=== PATIENT | female | born 2000 | race Caucasian/White ===

== ENCOUNTER 2018-04-05 03:17 | Emergency (ER) | payer MEDICAID ==
[~2018-04-05] VITALS: Ht 157.5 cm; Wt 46.7 kg
[~2018-04-05 03:17] MED LIST: ALBU8HFA PO; IBUP-1984 PO; ONDA4TAB59 PO
[2018-04-05] MEDS ORDERED: normal saline 1000ML IV soln IVB ONE (03:40)
[2018-04-05] MEDS ORDERED: morphine 4 MG/ML inj SYRINge IV PRN (03:40)
[2018-04-05] MEDS ORDERED: iohexol 300mg/ml 100ml inj. ONE (03:41)
[2018-04-05 04:04] LABS: BASOPHILS % (AUTO) 0.3 % (0-1); EOSINOPHILS # (AUTO) 0.2 X10'3 (0-0.9); EOSINOPHILS % (AUTO) 1.5 % (0-6); HEMATOCRIT 37.8 % (35.0-45.0); HEMOGLOBIN 13.1 g/dl (12.0-16.0); LYMPHOCYTES # (AUTO) 2.3 X10'3 (1.1-4.8); LYMPHOCYTES % (AUTO) 19.3 % (21-51); MEAN CORPUSCULAR HEMOGLOBIN 30.8 PG (27.0-31.0); MEAN CORPUSCULAR HGB CONC 34.6 % (33.0-36.5); MEAN CORPUSCULAR VOLUME 88.9 FL (78-98); MEAN PLATELET VOLUME 9.9 FL (7.4-10.4); MONOCYTES # (AUTO) 0.5 X10'3 (0-0.9); MONOCYTES % (AUTO) 3.9 % (2-12); NEUTROPHILS # (AUTO) 9.1 X10'3 (1.8-7.7); PLATELET COUNT 260 X10'3 (140-440); RED BLOOD COUNT 4.26 X10'6 (4.20-5.60); RED CELL DISTRIBUTION WIDTH 12.5 % (11.5-14.5); WHITE BLOOD COUNT 12.1 X10'3 (4.5-11.0)
[2018-04-05 04:45] LABS: HCG SERUM QL NEGATIVE
[2018-04-05 04:46] LABS: PARTIAL THROMBOPLASTIN TIME 27 SECONDS (22-32); PROTHROMBIN TIME 10.2 SECONDS (9.0-12.0)
[2018-04-05 04:54] LABS: ALANINE AMINOTRANSFERASE 18 U/L (12-78); ALBUMIN 3.1 G/DL (3.4-5.0); ALBUMIN/GLOBULIN RATIO 1.1 (1.1-1.5); ALKALINE PHOSPHATASE 58 IU/L (20-180); ANION GAP 6 (8-16); ASPARTATE AMINO TRANSFERASE 9 U/L (10-37); BILIRUBIN,TOTAL 0.4 MG/DL (0.1-1.0); BLOOD UREA NITROGEN 12 MG/DL (7-18); BUN/CREATININE RATIO 14.1 (6.6-38.0); CALCIUM 8.5 MG/DL (8.5-10.1); CHLORIDE 105 MMOL/L (99-107); CREATININE 0.85 MG/DL (0.40-0.90); ETHANOL < 0.010 GM/DL (0.0-0.010); GLUCOSE 104 MG/DL (70-104); LIPASE 103 U/L (73-393); POTASSIUM 3.7 MMOL/L (3.5-5.1); SODIUM 137 MMOL/L (135-145); TOTAL CARBON DIOXIDE 25.6 MMOL/L (24-32); TROPONIN I < 0.04 NG/ML (0.0-0.05); eGFR 86 ML/MIN
[2018-04-05 05:35] VITALS: BP 109/65
[2018-04-05 05:57] LABS: COLOR,URINE YELLOW (Yellow); GLUCOSE, URINE NEGATIVE (Neg); KETONES,URINE NEGATIVE (Neg); LEUKOCYTE ESTERASE ,URINE NEGATIVE (Neg); NITRITES, URINE NEGATIVE (Neg); OCCULT BLOOD,URINE LARGE (Neg); PH,URINE 6.5 (4.8-8.0); PROTEIN,URINE NEGATIVE (Neg); UROBILINOGEN,URINE 0.2 E.U/dL (0.2-1.0)
[2018-04-05 06:01] LABS: CLARITY,URINE SLIGHTLY CLOUDY (Clear); UA COLLECTION TYPE CLN CATCH MIDSTREAM
[2018-04-05 06:11] LABS: URINE AMPHETAMINE SCREEN NEGATIVE (Neg); URINE BARBITUATE SCREEN NEGATIVE (Neg); URINE BENZODIAZEPINES SCREEN NEGATIVE (Neg); URINE CANNABINOID SCREEN POSITIVE (Neg); URINE COCAINE SCREEN NEGATIVE (Neg); URINE METHADONE SCREEN NEGATIVE (Neg); URINE OPIATE SCREEN POSITIVE (Neg); URINE PHENCYCLIDINE SCREEN NEGATIVE (Neg)
[2018-04-05 06:14] LABS: BACTERIA,URINE 2+ /HPF (Neg); MUCUS STRANDS MODERATE /LPF (Neg); RBC,URINE 0-2 /HPF (0-2); SQUAMOUS EPITHELIAL CELL,UR MODERATE /LPF (FEW); WBC,URINE 0-4 /HPF (0-4)
== END 2018-04-05 05:37 | disposition home or self-care (01) ==
LOC: ER 03:17
DX: N83.202 Unspecified ovarian cyst, left side (principal); M25.512 Pain in left shoulder; M54.2 Cervicalgia; M25.552 Pain in left hip; R51 Headache; R10.84 Generalized abdominal pain; Z88.0 Allergy status to penicillin; Z79.899 Other long term (current) drug therapy; V48.5XXA Car driver injured in noncollision transport accident in traffic accident, initial encounter; Y93.89 Activity, other specified; Y92.410 Unspecified street and highway as the place of occurrence of the external cause; Y99.8 Other external cause status
CPT/HCPCS: 36415; 70450; 71260; 72125; 74177; 80053; 80305; 80320; 81001; 83690; 84484; 84703; 85025; 85610; 85730; 96374; 99285; J2270; J7030; Q9967

== ENCOUNTER 2019-09-15 18:57 | Emergency (ER) | payer MEDICAID ==
[~2019-09-15] VITALS: Ht 157.5 cm; Wt 47.7 kg
[2019-09-15] MEDS ORDERED: acetaminophen 325mg tablet PO ONE (19:05)
[2019-09-15] MEDS ORDERED: normal saline 1000ML IV soln IV ONE (19:35)
[2019-09-15 19:50] LABS: BASOPHILS % (AUTO) 0.2 % (0-1); EOSINOPHILS % (AUTO) 0.2 % (0-6); HEMATOCRIT 39.3 % (35.0-45.0); HEMOGLOBIN 13.5 g/dl (12.0-16.0); LYMPHOCYTES # (AUTO) 1.3 X10'3 (1.1-4.8); LYMPHOCYTES % (AUTO) 5.6 % (21-51); MEAN CORPUSCULAR HEMOGLOBIN 29.3 PG (27.0-31.0); MEAN CORPUSCULAR HGB CONC 34.3 g/dL (33.0-36.5); MEAN CORPUSCULAR VOLUME 85.6 FL (78-98); MEAN PLATELET VOLUME 8.8 FL (7.4-10.4); MONOCYTES # (AUTO) 0.7 X10'3 (0-0.9); NEUTROPHILS # (AUTO) 20.5 X10'3 (1.8-7.7); PLATELET COUNT 293 X10'3 (140-440); RED BLOOD COUNT 4.59 X10'6 (4.20-5.60); RED CELL DISTRIBUTION WIDTH 12.9 % (11.5-14.5); WHITE BLOOD COUNT 22.6 X10'3 (4.5-11.0)
[2019-09-15] MEDS ORDERED: oseltamivir phos 75mg capsule PO ONE (19:55)
[2019-09-15 20:15] LABS: ALANINE AMINOTRANSFERASE 22 U/L (12-78); ALBUMIN 4.4 G/DL (3.4-5.0); ALBUMIN/GLOBULIN RATIO 1.3 (1.1-1.5); ALKALINE PHOSPHATASE 100 IU/L (20-180); ANION GAP 12 (8-16); ASPARTATE AMINO TRANSFERASE 13 U/L (10-37); BLOOD UREA NITROGEN 12 MG/DL (7-18); BUN/CREATININE RATIO 16.2 (6.6-38.0); CALCIUM 9.5 MG/DL (8.5-10.1); CHLORIDE 102 MMOL/L (99-107); CREATININE 0.74 MG/DL (0.40-0.90); GLUCOSE 88 MG/DL (70-104); POTASSIUM 3.8 MMOL/L (3.5-5.1); SODIUM 135 MMOL/L (135-145); TOTAL CARBON DIOXIDE 21.2 MMOL/L (24-32); TOTAL PROTEIN 7.7 G/DL (6.4-8.2); eGFR > 90 ML/MIN
[2019-09-15 20:28] LABS: CLARITY,URINE CLEAR (Clear); COLOR,URINE YELLOW (Yellow); GLUCOSE, URINE NEGATIVE (Neg); KETONES,URINE 15 mg/dl (Neg); LEUKOCYTE ESTERASE ,URINE NEGATIVE (Neg); NITRITES, URINE NEGATIVE (Neg); OCCULT BLOOD,URINE NEGATIVE (Neg); PH,URINE 5.5 (4.8-8.0); PROTEIN,URINE NEGATIVE (Neg); UROBILINOGEN,URINE 0.2 E.U/dL (0.2-1.0)
[2019-09-15 20:32] LABS: UA COLLECTION TYPE CLN CATCH MIDSTREAM
[2019-09-15 20:45] VITALS: BP 101/46
--- NOTE | 2019-09-15 21:13 | NUR ---
pt moved from [facility] bed to er bed 8, report from junie morgan, care assumed
[2019-09-15] MEDS ORDERED: ALBU6.7H9 INH (21:15)
[2019-09-15] MEDS ORDERED: AZIT250T2 PO (21:15)
[2019-09-15] MEDS ORDERED: TAM75C PO (21:15)
[2019-09-15] MEDS ORDERED: ONDA4TAB6 PO (21:16)
[2019-09-15] MEDS ORDERED: ondansetron 4mg rapidly disintigrating tab PO ONE (21:20)
== END 2019-09-15 21:33 | disposition home or self-care (01) ==
LOC: ER 18:58
DX: B34.9 Viral infection, unspecified (principal); R05 Cough; Z88.0 Allergy status to penicillin; Z79.899 Other long term (current) drug therapy
CPT/HCPCS: 36415; 71045; 80053; 81003; 83605; 84145; 85025; 87040; 87502; 87503; 99284; J7030; J7040

== ENCOUNTER 2019-10-14 17:09 | Emergency (ER) | payer MEDICAID ==
[~2019-10-14] VITALS: Ht 157.5 cm; Wt 48.4 kg
[~2019-10-14 17:09] MED LIST changes: +ALBU6.7H9 INH; +ONDA4TAB6 PO
[2019-10-14 17:22] VITALS: BP 126/77
== END 2019-10-14 19:44 | disposition left against medical advice (07) ==
LOC: ER 17:10
DX: R51 Headache (principal); Z53.21 Procedure and treatment not carried out due to patient leaving prior to being seen by health care provider

== ENCOUNTER 2019-11-19 15:04 | Outpatient (CLI) | payer MEDICAID | END 2019-11-19 23:59 | disposition home or self-care (01) | LOC: RAD 15:04 | PROVIDERS: ATTEND Physician Assistant Medical | DX: R56.9 Unspecified convulsions (principal) | CPT/HCPCS: 95816 ==

== ENCOUNTER 2020-07-14 11:04 | Day surgery (SDC) | payer MEDICAID ==
[2020-07-07 12:28] LABS: CLARITY,URINE SLIGHTLY CLOUDY (Clear); COLOR,URINE YELLOW (Yellow); GLUCOSE, URINE NEGATIVE (Neg); KETONES,URINE NEGATIVE (Neg); LEUKOCYTE ESTERASE ,URINE NEGATIVE (Neg); NITRITES, URINE NEGATIVE (Neg); OCCULT BLOOD,URINE NEGATIVE (Neg); PROTEIN,URINE NEGATIVE (Neg); UROBILINOGEN,URINE 0.2 E.U/dL (0.2-1.0)
[2020-07-07 12:28] LABS: BASOPHILS % (AUTO) 0.5 % (0-1); EOSINOPHILS # (AUTO) 0.2 X10'3 (0-0.9); EOSINOPHILS % (AUTO) 2.2 % (0-6); LYMPHOCYTES # (AUTO) 2.8 X10'3 (1.1-4.8); LYMPHOCYTES % (AUTO) 29.3 % (21-51); MEAN CORPUSCULAR HEMOGLOBIN 30.6 PG (27.0-31.0); MEAN CORPUSCULAR HGB CONC 33.7 g/dL (33.0-36.5); MEAN CORPUSCULAR VOLUME 90.6 FL (78-98); MEAN PLATELET VOLUME 8.8 FL (7.4-10.4); MONOCYTES # (AUTO) 0.5 X10'3 (0-0.9); MONOCYTES % (AUTO) 5.4 % (2-12); NEUTROPHILS % (AUTO) 62.6 % (42-75); PRE OP HEMATOCRIT 37.6 % (35.0-45.0); PRE OP HEMOGLOBIN 12.7 g/dL (12.0-16.0); PRE OP PLATELET COUNT 313 X10'3 (140-440); RED BLOOD COUNT 4.15 X10'6 (4.20-5.60); RED CELL DISTRIBUTION WIDTH 13.3 % (11.5-14.5)
[2020-07-07 12:37] LABS: UA COLLECTION TYPE CLN CATCH MIDSTREAM
[2020-07-07 12:38] LABS: BACTERIA,URINE 1+ /HPF (Neg); MUCUS STRANDS MODERATE /LPF (Neg); SQUAMOUS EPITHELIAL CELL,UR MODERATE /LPF (FEW)
[2020-07-07 12:38] LABS: ALBUMIN 3.9 G/DL (3.4-5.0); ALBUMIN/GLOBULIN RATIO 1.3 (1.1-1.5); ALKALINE PHOSPHATASE 69 IU/L (46-116); BLOOD UREA NITROGEN 19 MG/DL (7-18); BUN/CREATININE RATIO 24.4 (6.6-38.0); CALCIUM 8.6 MG/DL (8.5-10.1); CHLORIDE 109 MMOL/L (99-107); CREATININE 0.78 MG/DL (0.40-0.90); PRE OP ALT 24 U/L (30-65); PRE OP ANION GAP 3 (8-16); PRE OP AST 9 U/L (10-37); PRE OP BILIRUB, TOTAL 0.4 MG/DL (0.0-1.0); PRE OP GLUCOSE 64 MG/DL (70-104); PRE OP POTASSIUM 3.6 MMOL/L (3.4-5.1); PRE OP SODIUM 141 MMOL/L (135-145); TOTAL CARBON DIOXIDE 29.5 MMOL/L (24-32); TOTAL PROTEIN 6.8 G/DL (6.4-8.2); eGFR > 90 ML/MIN
[2020-07-07 12:39] LABS: RBC,URINE 0-2 /HPF (0-2); WBC,URINE 0-4 /HPF (0-4)
[2020-07-07 12:51] LABS: HCG SERUM QL POSITIVE
[~2020-07-14] VITALS: Ht 157.5 cm; Wt 44.9 kg
[2020-07-14] VITALS (12 sets, daily range): BP systolic 93–106; BP diastolic 44–66
[~2020-07-14 11:04] MED LIST changes: -ALBU6.7H9 INH; -ALBU8HFA PO; +GENTAMICIN IV ONE; +NORMAL SALINE IV ONE; -ONDA4TAB59 PO; -ONDA4TAB6 PO; +clindamycin-Cleocin 900mg/D5W 50 ML IV ONE; +famotidine 10mg tablet PO ONE; +ringers solution, lacted 1,000 ML IV SCH
[2020-07-14] MEDS ORDERED: labetalol 20mg/4ml (5mg/ml) syringe IV PRN (12:40)
[2020-07-14] MEDS ORDERED: ringers solution, lacted 1,000 ML IV SCH ×2 (12:40→15:10)
[2020-07-14] MEDS ORDERED: fentaNYL/PF 50MCG/1 ML 2ML syringe IV PRN ×2 (12:40)
[2020-07-14] MEDS ORDERED: morphine 2 MG/ML inj. syringe IV PRN ×2 (12:40→15:10)
[2020-07-14] MEDS ORDERED: morphine 4 MG/ML inj SYRINge IV PRN ×2 (12:40→15:10)
[2020-07-14] MEDS ORDERED: hydrALAZINE 20mg/ml inj. IV PRN (12:40)
[2020-07-14] MEDS ORDERED: ondansetron/PF 4mg/2ml inj IV PRN ×2 (12:40→15:10)
[2020-07-14] MEDS ORDERED: BUPIVAcaine 0.25% w/Epi /PF 30ml vial ONE (14:04)
[2020-07-14] MEDS ORDERED: BUPIVAcaine/PF 2.5 mg/ml (0.25%) 30ml vial ONE (14:05)
[2020-07-14] MEDS ORDERED: MIDAZolam 5mg/ml 2ml vial IV ONE (15:00)
[2020-07-14] MEDS ORDERED: meperidine/PF 25mg/ml syringe IV PRN ×2 (15:10)
[2020-07-14] MEDS ORDERED: proCHLORperazine 10 MG/2 ml inj IV PRN (15:10)
[2020-07-14] MEDS ORDERED: sevoflurane 250ml liquid IH ONE (16:01)
[2020-07-14] MEDS ORDERED: rocuronium 10mg/ml inj IV ONE (16:01)
[2020-07-14] MEDS ORDERED: atropine 0.4 mg/ml 20ml vial ONE (16:01)
[2020-07-14] MEDS ORDERED: fentaNYL/PF 50MCG/1 ML 2ML syringe ONE (16:03)
[2020-07-14] MEDS ORDERED: midazolam 2 mg/2 ml injection ONE (16:03)
[2020-07-14] MEDS ORDERED: dexamethasone sod phosphate 4mg/ml inj. ONE (16:22)
[2020-07-14] MEDS ORDERED: LIDOcaine 2% (20mg/ml) 5ml vial ONE (16:22)
[2020-07-14] MEDS ORDERED: propofol inj 20 ML IV ONE (16:22)
[2020-07-14] MEDS ORDERED: ketorolac trometh. 30mg/ml inj. ONE (16:28)
--- NOTE | 2020-07-14 16:52 | NUR ---
Received from OR via , accompanied by Anesthesiologist DR CLEMENTE and report given by Anesthesiolgist. NOT RESPONSIVE. ORAL AIRWAY IN PLACE. BREATHING WITHOUR ASSISTANCE. VITALS STABLE. DRESSINGS DI. ABD SOFT.
--- NOTE | 2020-07-14 17:00 | NUR ---
PT IS NOW RESPONDING AIRWAY REMOVED.
[2020-07-14] MEDS: meperidine/PF 25mg/ml syringe IV PRN ×3 (17:14→18:01)
[2020-07-14] MEDS ORDERED: acetaminophen 1,000mg/100ml IV 100 ML IV ONE (17:50)
[2020-07-14] MEDS ORDERED: HYDROcodone/acetaminophen 10/325mg tab PO ONE (17:50)
--- NOTE | 2020-07-14 18:52 | NUR ---
AWAKE AND ORIENTED. VITALS STABLE. DRESSING DI. STATES PAIN IMPROVING. HOME WITH HER SPOUSE AT THIS TIME.
== END 2020-07-14 18:52 | disposition home or self-care (01) ==
LOC: PAS 11:04
PROVIDERS: ATTEND Obstetrics & Gynecology Obstetrics
DX: Z30.2 Encounter for sterilization (principal); Z20.828 Contact with and (suspected) exposure to other viral communicable diseases; F17.210 Nicotine dependence, cigarettes, uncomplicated; G43.909 Migraine, unspecified, not intractable, without status migrainosus; F32.9 Major depressive disorder, single episode, unspecified; D64.9 Anemia, unspecified; F41.9 Anxiety disorder, unspecified; Z86.14 Personal history of Methicillin resistant Staphylococcus aureus infection; Z88.0 Allergy status to penicillin; Z79.899 Other long term (current) drug therapy; Z98.890 Other specified postprocedural states; R10.2 Pelvic and perineal pain
CPT/HCPCS: 36415; 58671; 80053; 81001; 82948; 84702; 84703; 85025; 86885; 86900; 86901; 87635; A4264; J0131; J0461; J1100; J1580; J1885; J2001; J2175; J2250; J2405; J2704; J3010; J3490; A4618; A7000; J7120

== ENCOUNTER 2021-02-17 19:39 | Emergency (ER) | payer MEDICAID ==
[~2021-02-17] VITALS: Ht 157.5 cm; Wt 47.5 kg
[~2021-02-17 19:39] MED LIST changes: -GENTAMICIN IV ONE; -NORMAL SALINE IV ONE; -clindamycin-Cleocin 900mg/D5W 50 ML IV ONE; -famotidine 10mg tablet PO ONE; -ringers solution, lacted 1,000 ML IV SCH
[2021-02-17 20:40] LABS: URINE HCG NEGATIVE (NEG)
[2021-02-17 20:42] LABS: CLARITY,URINE CLEAR (Clear); COLOR,URINE YELLOW (Yellow); GLUCOSE, URINE NEGATIVE (Neg); KETONES,URINE NEGATIVE (Neg); LEUKOCYTE ESTERASE ,URINE TRACE (Neg); NITRITES, URINE NEGATIVE (Neg); OCCULT BLOOD,URINE NEGATIVE (Neg); PROTEIN,URINE NEGATIVE (Neg); UROBILINOGEN,URINE 0.2 E.U/dL (0.2-1.0)
[2021-02-17 20:51] LABS: UA COLLECTION TYPE CLN CATCH MIDSTREAM
[2021-02-17 20:52] LABS: BACTERIA,URINE FEW /HPF (Neg); RBC,URINE NONE SEEN /HPF (0-2); SQUAMOUS EPITHELIAL CELL,UR FEW /LPF (FEW); WBC,URINE 0-4 /HPF (0-4)
[2021-02-17] MEDS ORDERED: CIPR-202 PO (22:41)
[2021-02-17 22:50] VITALS: BP 110/62
== END 2021-02-17 22:52 | disposition home or self-care (01) ==
LOC: ER 19:40
DX: N39.0 Urinary tract infection, site not specified (principal); R30.0 Dysuria; R10.84 Generalized abdominal pain; Z88.0 Allergy status to penicillin; Z79.2 Long term (current) use of antibiotics; Z79.899 Other long term (current) drug therapy
CPT/HCPCS: 81001; 81025; 87077; 87088; 87186; 99283

== ENCOUNTER 2021-03-08 18:58 | Emergency (ER) | payer MEDICAID ==
[~2021-03-08] VITALS: Ht 157.5 cm; Wt 47.5 kg
[2021-03-08 19:42] LABS: URINE HCG NEGATIVE (NEG)
[2021-03-08 19:46] LABS: COLOR,URINE YELLOW (Yellow); GLUCOSE, URINE NEGATIVE (Neg); KETONES,URINE NEGATIVE (Neg); LEUKOCYTE ESTERASE ,URINE NEGATIVE (Neg); NITRITES, URINE NEGATIVE (Neg); OCCULT BLOOD,URINE NEGATIVE (Neg); PROTEIN,URINE NEGATIVE (Neg); UROBILINOGEN,URINE 0.2 E.U/dL (0.2-1.0)
[2021-03-08 19:53] LABS: CLARITY,URINE SLIGHTLY CLOUDY (Clear); UA COLLECTION TYPE NON-SPECIFIED
[2021-03-08 19:54] LABS: WBC,URINE 0-4 /HPF (0-4)
[2021-03-08 19:55] LABS: BACTERIA,URINE NONE SEEN /HPF (Neg); MUCUS STRANDS MODERATE /LPF (Neg); RBC,URINE NONE SEEN /HPF (0-2); SQUAMOUS EPITHELIAL CELL,UR MODERATE /LPF (FEW)
[2021-03-08 20:19] VITALS: BP 116/69
== END 2021-03-08 20:20 | disposition home or self-care (01) ==
LOC: ER 19:00
DX: R30.0 Dysuria (principal); R10.2 Pelvic and perineal pain; M54.5 Low back pain; G43.909 Migraine, unspecified, not intractable, without status migrainosus; F12.90 Cannabis use, unspecified, uncomplicated; Z98.51 Tubal ligation status; Z56.0 Unemployment, unspecified; Z88.0 Allergy status to penicillin; Z79.899 Other long term (current) drug therapy
CPT/HCPCS: 81001; 81025; 99283

== ENCOUNTER 2021-06-15 06:57 | Emergency (ER) | payer MEDICAID ==
[~2021-06-15] VITALS: Ht 157.5 cm; Wt 45.5 kg
[2021-06-15 07:51] LABS: URINE HCG NEGATIVE (NEG)
[2021-06-15] MEDS ORDERED: HYDROcodone/acetaminophen 5mg/325mg tablet PO ONE (07:55)
[2021-06-15 07:56] LABS: CLARITY,URINE CLOUDY (Clear); COLOR,URINE YELLOW (Yellow); UA COLLECTION TYPE CLN CATCH MIDSTREAM
[2021-06-15 07:57] LABS: GLUCOSE, URINE NEGATIVE (Neg); KETONES,URINE NEGATIVE (Neg); NITRITES, URINE POSITIVE (Neg); OCCULT BLOOD,URINE NEGATIVE (Neg); PROTEIN,URINE TRACE mg/dl (Neg)
[2021-06-15 07:58] LABS: LEUKOCYTE ESTERASE ,URINE TRACE (Neg)
[2021-06-15 08:09] VITALS: BP 101/60
[2021-06-15 08:10] LABS: MUCUS STRANDS MODERATE /LPF (Neg)
[2021-06-15] MEDS ORDERED: ciprofloxacin 250mg tablet PO ONE (08:10)
[2021-06-15 08:11] LABS: BACTERIA,URINE TNTC /HPF (Neg)
[2021-06-15 08:12] LABS: RBC,URINE NONE SEEN /HPF (0-2); WBC,URINE 0-4 /HPF (0-4)
[2021-06-15 08:14] LABS: SQUAMOUS EPITHELIAL CELL,UR MODERATE /LPF (FEW)
[2021-06-15] MEDS ORDERED: HYDR-3965 PO (08:18)
[2021-06-15] MEDS ORDERED: CIPR-202 PO (08:18)
[2021-06-15] MEDS ORDERED: ONDA4TAB6 PO (16:57)
== END 2021-06-15 08:53 | disposition home or self-care (01) ==
LOC: ER 06:57
DX: N39.0 Urinary tract infection, site not specified (principal); G43.909 Migraine, unspecified, not intractable, without status migrainosus; Z88.0 Allergy status to penicillin; Z56.0 Unemployment, unspecified; Z79.899 Other long term (current) drug therapy
CPT/HCPCS: 71045; 81001; 81025; 99284

== ENCOUNTER 2021-06-15 16:26 | Emergency (ER) | payer MEDICAID ==
[~2021-06-15] VITALS: Ht 157.5 cm; Wt 45.5 kg
[~2021-06-15 16:26] MED LIST changes: +CIPR-202 PO; +HYDR-3965 PO
[2021-06-15] MEDS ORDERED: ondansetron/PF 4mg/2ml inj IV ONE (16:45)
[2021-06-15] MEDS ORDERED: normal saline 1000ML IV soln IVB ONE (16:45)
[2021-06-15] MEDS ORDERED: ketorolac trometh. 30mg/ml inj. IV ONE (16:45)
[2021-06-15] MEDS ORDERED: ONDA4TAB6 PO (16:57)
[2021-06-15 19:07] VITALS: BP 120/58
== END 2021-06-15 19:10 | disposition home or self-care (01) ==
LOC: ER 16:27
DX: U07.1 COVID-19 (principal); E86.0 Dehydration; N39.0 Urinary tract infection, site not specified; G43.909 Migraine, unspecified, not intractable, without status migrainosus; F12.10 Cannabis abuse, uncomplicated; Z56.0 Unemployment, unspecified; Z88.0 Allergy status to penicillin; Z79.899 Other long term (current) drug therapy
CPT/HCPCS: 93005; 96361; 96374; 96375; 99284; J1885; J2405; J7030

== ENCOUNTER 2021-06-26 10:41 | Emergency (ER) | payer MEDICAID ==
[~2021-06-26] VITALS: Ht 157.5 cm; Wt 45.5 kg
[~2021-06-26 10:41] MED LIST changes: +ONDA4TAB6 PO
[2021-06-26 11:37] LABS: BASOPHILS # (AUTO) 0.1 X10'3 (0-0.2); BASOPHILS % (AUTO) 0.4 % (0-1); EOSINOPHILS # (AUTO) 0.1 X10'3 (0-0.9); EOSINOPHILS % (AUTO) 0.7 % (0-6); HEMATOCRIT 35.7 % (35.0-45.0); HEMOGLOBIN 12.2 g/dl (12.0-16.0); LYMPHOCYTES # (AUTO) 2.8 X10'3 (1.1-4.8); LYMPHOCYTES % (AUTO) 14.8 % (21-51); MEAN CORPUSCULAR HEMOGLOBIN 30.1 PG (27.0-31.0); MEAN CORPUSCULAR HGB CONC 34.2 g/dL (33.0-36.5); MEAN PLATELET VOLUME 8.2 FL (7.4-10.4); MONOCYTES # (AUTO) 1.4 X10'3 (0-0.9); MONOCYTES % (AUTO) 7.1 % (2-12); NEUTROPHILS # (AUTO) 14.6 X10'3 (1.8-7.7); PLATELET COUNT 507 X10'3 (140-440); RED BLOOD COUNT 4.06 X10'6 (4.20-5.60); RED CELL DISTRIBUTION WIDTH 12.8 % (11.5-14.5)
[2021-06-26 11:53] LABS: ALANINE AMINOTRANSFERASE 23 U/L (12-78); ALBUMIN 4.1 G/DL (3.4-5.0); ALKALINE PHOSPHATASE 101 IU/L (46-116); ANION GAP 7 (8-16); ASPARTATE AMINO TRANSFERASE 13 U/L (10-37); BILIRUBIN,TOTAL 0.8 MG/DL (0.1-1.0); BLOOD UREA NITROGEN 19 MG/DL (7-18); BUN/CREATININE RATIO 25.7 (6.6-38.0); CALCIUM 9.4 MG/DL (8.5-10.1); CHLORIDE 103 MMOL/L (99-107); CREATININE 0.74 MG/DL (0.40-0.90); GLUCOSE 90 MG/DL (70-104); POTASSIUM 3.2 MMOL/L (3.5-5.1); SODIUM 139 MMOL/L (135-145); TOTAL CARBON DIOXIDE 29.1 MMOL/L (24-32); TOTAL PROTEIN 8.4 G/DL (6.4-8.2); eGFR > 90 ML/MIN
[2021-06-26 13:01] LABS: URINE HCG NEGATIVE (NEG)
[2021-06-26 13:22] LABS: UA COLLECTION TYPE CLN CATCH MIDSTREAM
[2021-06-26 13:23] LABS: CLARITY,URINE SLIGHTLY CLOUDY (Clear); GLUCOSE, URINE NEGATIVE (Neg); KETONES,URINE NEGATIVE (Neg); LEUKOCYTE ESTERASE ,URINE NEGATIVE (Neg); NITRITES, URINE NEGATIVE (Neg); OCCULT BLOOD,URINE NEGATIVE (Neg); PROTEIN,URINE NEGATIVE (Neg); UROBILINOGEN,URINE 0.2 E.U/dL (0.2-1.0)
[2021-06-26 13:24] LABS: COLOR,URINE YELLOW (Yellow)
[2021-06-26 13:30] LABS: MUCUS STRANDS MANY /LPF (Neg); SQUAMOUS EPITHELIAL CELL,UR MANY /LPF (FEW); TRANSITIONAL EPI CELLS,URINE FEW /HPF
[2021-06-26 13:31] LABS: BACTERIA,URINE FEW /HPF (Neg); RBC,URINE 0-2 /HPF (0-2); WBC,URINE 0-4 /HPF (0-4)
[2021-06-26] MEDS ORDERED: ondansetron 4mg rapidly disintigrating tab PO ONE (13:40)
[2021-06-26] MEDS ORDERED: CYCL-1 PO (15:20)
[2021-06-26] MEDS ORDERED: potassium Cl 20 mEq SR tablet PO ONE (15:20)
[2021-06-26] MEDS ORDERED: ketorolac tromethamine 15mg/ml inj. IM ONE (15:20)
[2021-06-26] MEDS ORDERED: IBUP-1984 PO (15:20)
[2021-06-26 16:05] VITALS: BP 97/56
== END 2021-06-26 16:00 | disposition home or self-care (01) ==
LOC: ER 10:42
DX: S39.011A Strain of muscle, fascia and tendon of abdomen, initial encounter (principal); R10.84 Generalized abdominal pain; G43.909 Migraine, unspecified, not intractable, without status migrainosus; F12.90 Cannabis use, unspecified, uncomplicated; Z56.0 Unemployment, unspecified; Z98.51 Tubal ligation status; Z88.0 Allergy status to penicillin; Z79.2 Long term (current) use of antibiotics; Z79.899 Other long term (current) drug therapy; X58.XXXA Exposure to other specified factors, initial encounter; Y93.89 Activity, other specified; Y92.89 Other specified places as the place of occurrence of the external cause; Y99.8 Other external cause status
CPT/HCPCS: 36415; 71045; 74176; 80053; 81001; 81025; 83605; 83690; 84145; 85025; 96372; 99285; J1885

== ENCOUNTER 2022-01-30 20:54 | Emergency (ER) | payer MEDICAID ==
[~2022-01-30] VITALS: Ht 157.5 cm; Wt 52.3 kg
[~2022-01-30 20:54] MED LIST changes: -CIPR-202 PO; +CYCL-1 PO; -HYDR-3965 PO
[2022-01-30 21:51] LABS: URINE HCG NEGATIVE (NEG)
[2022-01-30 21:54] LABS: BASOPHILS # (AUTO) 0.1 X10'3 (0-0.2); BASOPHILS % (AUTO) 1.1 % (0-1); EOSINOPHILS # (AUTO) 0.2 X10'3 (0-0.9); EOSINOPHILS % (AUTO) 2.1 % (0-6); HEMATOCRIT 35.9 % (35.0-45.0); LYMPHOCYTES # (AUTO) 2.2 X10'3 (1.1-4.8); LYMPHOCYTES % (AUTO) 23.5 % (21-51); MEAN CORPUSCULAR HEMOGLOBIN 29.8 PG (27.0-31.0); MEAN CORPUSCULAR HGB CONC 33.4 g/dL (33.0-36.5); MEAN CORPUSCULAR VOLUME 89.2 FL (78-98); MONOCYTES # (AUTO) 0.8 X10'3 (0-0.9); MONOCYTES % (AUTO) 8.5 % (2-12); NEUTROPHILS # (AUTO) 6.1 X10'3 (1.8-7.7); NEUTROPHILS % (AUTO) 64.8 % (42-75); PLATELET COUNT 251 X10'3 (140-440); RED BLOOD COUNT 4.02 X10'6 (4.20-5.60); WHITE BLOOD COUNT 9.4 X10'3 (4.5-11.0)
[2022-01-30 21:56] LABS: CLARITY,URINE CLEAR (Clear); COLOR,URINE YELLOW (Yellow); GLUCOSE, URINE NEGATIVE (Neg); KETONES,URINE NEGATIVE (Neg); LEUKOCYTE ESTERASE ,URINE NEGATIVE (Neg); NITRITES, URINE NEGATIVE (Neg); OCCULT BLOOD,URINE NEGATIVE (Neg); PROTEIN,URINE NEGATIVE (Neg); UROBILINOGEN,URINE 0.2 E.U/dL (0.2-1.0)
[2022-01-30 21:58] LABS: UA COLLECTION TYPE CLN CATCH MIDSTREAM
[2022-01-30 22:07] LABS: ALANINE AMINOTRANSFERASE 20 U/L (12-78); ALBUMIN 3.6 G/DL (3.4-5.0); ALBUMIN/GLOBULIN RATIO 1.2 (1.1-1.5); ALKALINE PHOSPHATASE 53 IU/L (46-116); ANION GAP 9 (8-16); ASPARTATE AMINO TRANSFERASE 15 U/L (10-37); BILIRUBIN,TOTAL 0.3 MG/DL (0.1-1.0); BLOOD UREA NITROGEN 21 MG/DL (7-18); CHLORIDE 105 MMOL/L (99-107); CREATININE 0.75 MG/DL (0.40-0.90); GLUCOSE 98 MG/DL (70-104); LIPASE 86 U/L (73-393); POTASSIUM 4.1 MMOL/L (3.5-5.1); SODIUM 139 MMOL/L (135-145); TOTAL CARBON DIOXIDE 24.7 MMOL/L (24-32); TOTAL PROTEIN 6.5 G/DL (6.4-8.2); eGFR > 90 ML/MIN
[2022-01-30] MEDS ORDERED: HYDROcodone/acetaminophen 5mg/325mg tablet PO ONE (23:10)
[2022-01-30] MEDS ORDERED: normal saline 1000ml 1,000 ML IV ONE (23:10)
[2022-01-30] MEDS ORDERED: ondansetron/PF 4mg/2ml inj IV ONE (23:10)
[2022-01-30] MEDS ORDERED: dicyclomine 10 MG capsule PO ONE (23:10)
[2022-01-30] MEDS ORDERED: ketorolac trometh. 30mg/ml inj. IV ONE (23:10)
[2022-01-30] MEDS ORDERED: acetaminophen 325mg tablet PO ONE (23:10)
[2022-01-31] MEDS ORDERED: DOCU-171 PO (00:02)
[2022-01-31 00:12] VITALS: BP 102/61
== END 2022-01-31 00:14 | disposition home or self-care (01) ==
LOC: ER 20:54
DX: R10.31 Right lower quadrant pain (principal); R10.32 Left lower quadrant pain; G43.909 Migraine, unspecified, not intractable, without status migrainosus; F12.90 Cannabis use, unspecified, uncomplicated; Z98.51 Tubal ligation status; Z56.0 Unemployment, unspecified; Z88.0 Allergy status to penicillin; Z79.899 Other long term (current) drug therapy
CPT/HCPCS: 36415; 74176; 80053; 81003; 81025; 83690; 85025; 96361; 96374; 96375; 99284; J1885; J2405; J7030

== ENCOUNTER 2023-02-17 11:46 | Emergency (ER) | payer MEDICAID ==
[~2023-02-17] VITALS: Ht 157.5 cm; Wt 59.1 kg
[~2023-02-17 11:46] MED LIST changes: +DOCU-171 PO
[2023-02-17 12:10] VITALS: BP 118/73
[2023-02-17] MEDS ORDERED: ketorolac trometh inj. 60 MG/2 ML VIAL IM ONE (12:55)
[2023-02-17] MEDS ORDERED: clindamycin 150mg capsule PO ONE (12:55)
[2023-02-17] MEDS ORDERED: IBUP-1986 PO (12:56)
[2023-02-17] MEDS ORDERED: CLIN-142 PO (12:56)
== END 2023-02-17 13:49 | disposition home or self-care (01) ==
LOC: ER 11:46
DX: K08.89 Other specified disorders of teeth and supporting structures (principal); G43.909 Migraine, unspecified, not intractable, without status migrainosus; F12.90 Cannabis use, unspecified, uncomplicated; Z88.0 Allergy status to penicillin; Z98.51 Tubal ligation status; Z56.0 Unemployment, unspecified
CPT/HCPCS: 96372; 99283; J1885

== ENCOUNTER 2023-07-02 08:17 | Emergency (ER) | payer MEDICAID ==
[~2023-07-02] VITALS: Ht 157.5 cm; Wt 56.0 kg
[~2023-07-02 08:17] MED LIST changes: +IBUP-1986 PO
[2023-07-02 08:24] VITALS: TEMP 97.9
[2023-07-02] MEDS ORDERED: ondansetron/PF 4mg/2ml inj IV ONE (10:05)
[2023-07-02] MEDS ORDERED: normal saline 1000ml 1,000 ML IV ONE (10:05)
[2023-07-02 10:07] LABS: BASOPHILS # (AUTO) 0.1 X10'3 (0-0.2); BASOPHILS % (AUTO) 0.6 % (0-1); EOSINOPHILS % (AUTO) 0.2 % (0-6); HEMATOCRIT 41.7 % (35.0-45.0); HEMOGLOBIN 13.8 g/dl (12.0-16.0); LYMPHOCYTES # (AUTO) 1.5 X10'3 (1.1-4.8); MEAN CORPUSCULAR HEMOGLOBIN 30.3 PG (27.0-31.0); MEAN CORPUSCULAR HGB CONC 33.2 g/dL (33.0-36.5); MEAN CORPUSCULAR VOLUME 91.3 FL (78-98); MEAN PLATELET VOLUME 8.9 FL (7.4-10.4); MONOCYTES # (AUTO) 0.4 X10'3 (0-0.9); MONOCYTES % (AUTO) 3.7 % (2-12); NEUTROPHILS # (AUTO) 9.7 X10'3 (1.8-7.7); NEUTROPHILS % (AUTO) 82.5 % (42-75); PLATELET COUNT 353 X10'3 (140-440); RED BLOOD COUNT 4.57 X10'6 (4.20-5.60); RED CELL DISTRIBUTION WIDTH 12.9 % (11.5-14.5); WHITE BLOOD COUNT 11.7 X10'3 (4.5-11.0)
[2023-07-02 10:36] LABS: ALANINE AMINOTRANSFERASE 22 U/L (12-78); ALBUMIN 4.4 G/DL (3.4-5.0); ALBUMIN/GLOBULIN RATIO 1.3 (1.1-1.5); ALKALINE PHOSPHATASE 71 IU/L (46-116); ANION GAP 6 (8-16); ASPARTATE AMINO TRANSFERASE 16 U/L (10-37); BILIRUBIN,TOTAL 0.9 MG/DL (0.1-1.0); BLOOD UREA NITROGEN 14 MG/DL (7-18); BUN/CREATININE RATIO 20.6 (10.0-20.0); CALCIUM 9.6 MG/DL (8.5-10.1); CHLORIDE 105 MMOL/L (99-107); CREATININE 0.68 MG/DL (0.40-0.90); ETHANOL < 10 MG/DL (<10); GLUCOSE 132 MG/DL (70-104); POTASSIUM 3.6 MMOL/L (3.5-5.1); SODIUM 139 MMOL/L (135-145); TOTAL CARBON DIOXIDE 28.3 MMOL/L (24-32); TOTAL PROTEIN 7.8 G/DL (6.4-8.2); eCRCL 101 ML/MIN; eGFR > 90 ML/MIN
[2023-07-02 10:41] LABS: HCG SERUM QL NEGATIVE
[2023-07-02 10:50] VITALS: O2SAT 97
[2023-07-02 12:37] VITALS: BP 102/65; PULSE 76; RESP 18
== END 2023-07-02 12:48 | disposition home or self-care (01) ==
LOC: ER 08:18
DX: F10.129 Alcohol abuse with intoxication, unspecified (principal); R11.2 Nausea with vomiting, unspecified; R10.9 Unspecified abdominal pain; G43.909 Migraine, unspecified, not intractable, without status migrainosus; Z56.0 Unemployment, unspecified; Z98.51 Tubal ligation status; Z79.899 Other long term (current) drug therapy; Z88.0 Allergy status to penicillin; Y90.0 Blood alcohol level of less than 20 mg/100 ml
CPT/HCPCS: 36415; 80053; 80320; 83690; 84703; 85025; 96361; 96374; 99283; J2405; J7030

== ENCOUNTER 2023-07-29 13:29 | Emergency (ER) | payer MEDICAID ==
[~2023-07-29] VITALS: Ht 157.5 cm; Wt 56.7 kg
[2023-07-29 14:06] VITALS: BP 130/74; PULSE 98; TEMP 97.7; O2SAT 98
[2023-07-29 14:26] VITALS: RESP 16
[2023-07-29 15:28] LABS: BASOPHILS # (AUTO) 0.1 X10'3 (0-0.2); BASOPHILS % (AUTO) 0.7 % (0-1); EOSINOPHILS # (AUTO) 0.2 X10'3 (0-0.9); EOSINOPHILS % (AUTO) 1.7 % (0-6); HEMATOCRIT 40.4 % (35.0-45.0); HEMOGLOBIN 13.6 g/dl (12.0-16.0); LYMPHOCYTES % (AUTO) 28.7 % (21-51); MEAN CORPUSCULAR HEMOGLOBIN 30.7 PG (27.0-31.0); MEAN CORPUSCULAR HGB CONC 33.7 g/dL (33.0-36.5); MEAN PLATELET VOLUME 8.9 FL (7.4-10.4); MONOCYTES # (AUTO) 0.7 X10'3 (0-0.9); MONOCYTES % (AUTO) 6.3 % (2-12); NEUTROPHILS # (AUTO) 6.5 X10'3 (1.8-7.7); NEUTROPHILS % (AUTO) 62.6 % (42-75); PLATELET COUNT 319 X10'3 (140-440); RED BLOOD COUNT 4.43 X10'6 (4.20-5.60); RED CELL DISTRIBUTION WIDTH 12.7 % (11.5-14.5); WHITE BLOOD COUNT 10.4 X10'3 (4.5-11.0)
[2023-07-29 15:49] LABS: ALANINE AMINOTRANSFERASE 26 U/L (12-78); ALBUMIN 4.1 G/DL (3.4-5.0); ALBUMIN/GLOBULIN RATIO 1.2 (1.1-1.5); ALKALINE PHOSPHATASE 72 IU/L (46-116); ANION GAP 6 (8-16); ASPARTATE AMINO TRANSFERASE 17 U/L (10-37); BILIRUBIN,TOTAL 0.8 MG/DL (0.1-1.0); BLOOD UREA NITROGEN 8 MG/DL (7-18); BUN/CREATININE RATIO 12.1 (10.0-20.0); CALCIUM 9.4 MG/DL (8.5-10.1); CHLORIDE 103 MMOL/L (99-107); CREATININE 0.66 MG/DL (0.40-0.90); GLUCOSE 80 MG/DL (70-104); POTASSIUM 3.8 MMOL/L (3.5-5.1); SODIUM 138 MMOL/L (135-145); TOTAL CARBON DIOXIDE 28.8 MMOL/L (24-32); TOTAL PROTEIN 7.4 G/DL (6.4-8.2); eCRCL 104 ML/MIN; eGFR > 90 ML/MIN
== END 2023-07-29 16:55 | disposition home or self-care (01) ==
LOC: ER 13:31
DX: J02.9 Acute pharyngitis, unspecified (principal); G43.909 Migraine, unspecified, not intractable, without status migrainosus; F12.90 Cannabis use, unspecified, uncomplicated; Z88.0 Allergy status to penicillin; Z79.1 Long term (current) use of non-steroidal anti-inflammatories (NSAID); Z79.899 Other long term (current) drug therapy; Z98.51 Tubal ligation status
CPT/HCPCS: 36415; 80053; 84443; 85025; 99284

== ENCOUNTER 2023-09-24 07:24 | Emergency (ER) | payer MEDICAID ==
[~2023-09-24] VITALS: Ht 157.5 cm; Wt 57.5 kg
[2023-09-24 07:35] VITALS: BP 117/68; PULSE 79; RESP 16; TEMP 98; O2SAT 99
== END 2023-09-24 10:10 | disposition left against medical advice (07) ==
LOC: ER 07:25
DX: J02.9 Acute pharyngitis, unspecified (principal); Z53.21 Procedure and treatment not carried out due to patient leaving prior to being seen by health care provider
CPT/HCPCS: 99281

== ENCOUNTER 2023-11-01 20:07 | Emergency (ER) | payer MEDICAID ==
[~2023-11-01] VITALS: Ht 157.5 cm; Wt 54.5 kg
[2023-11-01 20:21] VITALS: BP 109/66; PULSE 103; RESP 20; TEMP 99.2; O2SAT 99
[2023-11-01] MEDS ORDERED: normal saline 1000ML IV soln IVB ONE (21:15)
[2023-11-01] MEDS ORDERED: ondansetron/PF 4mg/2ml inj IV ONE (21:15)
== END 2023-11-01 22:56 | disposition home or self-care (01) ==
LOC: ER 20:09
DX: R11.2 Nausea with vomiting, unspecified (principal); Z20.822 Contact with and (suspected) exposure to COVID-19; R50.9 Fever, unspecified; R05.9 Cough, unspecified; G43.909 Migraine, unspecified, not intractable, without status migrainosus; Z59.00 Homelessness unspecified; Z88.0 Allergy status to penicillin; Z79.899 Other long term (current) drug therapy
CPT/HCPCS: 36415; 87502; 87503; 87811; 96361; 96374; 99283; J2405; J7030

== ENCOUNTER 2025-09-22 15:52 | Emergency (ER) | payer MEDICAID ==
[~2025-09-22] VITALS: Ht 157.5 cm; Wt 53.2 kg
--- NOTE | 2025-09-22 16:14 | Physician Documentation ---
History of Present Illness ~ Chief Complaint: Headache Stated Complaint: Severe Head Pressure Time Seen by MD: 18:10 OK to notify your PCP?: Yes Primary Medical Doctor: Dr. Rollins Source: patient, RN/, RN notes reviewed, old records Mode of Arrival: POV HPI This patient is a 24 w/ PMH of migraines and mastoiditis, who presents to the ED complaining of MIRANDA, described as a pressure, with onset 5 days ago. Reports associated nausea and multiple bouts of emesis today. She has a hx of similar headaches over the past year and was previously seen by a neurologist who placed her on migraine medication, unspecified which meds. She is currently on Tylenol an ibuprofen without significant improvement. She is requesting zofran which has helped her nausea and vomiting in the past. She is also concerned about her symptoms in the setting of a reported past medical history of of mastoiditis which he states required surgery. She also reports having a stuffy nose currently. 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 which she was told was "not serious." Medication Reconciliation Allergies: Coded Allergies: No Known Allergies (Unverified , 09/22/25) Scheduled Azithromycin (Zithromax), 1 TAB PO DAILY Cyclobenzaprine* (Cyclobenzaprine*), 1 TAB PO Q8H Docusate Sodium (Dulcolax Stool Softener), 1 CAP PO Q12H Ibuprofen (Ibuprofen), 1 TAB PO Q8H Ibuprofen* (Motrin*), 600 MG PO PRN, (Reported) Ondansetron Hcl (Zofran), 1 TAB PO Q6H Scheduled PRN ONDANSETRON ODT 4mg tablet (Ondansetron Odt), 1 TAB PO Q6H PRN PRN for nausea/vomiting Past Medical History Past Medical History: Headache, Migraine (Patient previously seen Neurologist and put on migrane medication. ) Past Surgical History: tubal ligation, other Other Past Surgical History: Reported surgery for mastoiditis Smoking Status: Unknown if ever smoked Alcohol Use: Occasionally Drug Use: marijuana Lives with: Father Lives In: Home Occupation: unemployed Review of Systems All Other Systems at this time: Reviewed and Negative ROS As stated above in the HPI, otherwise all systems are reviewed and negative. Physical Exam Vital Signs: RN Vital Signs have been reviewed: Yes, Temperature: 97.9, Source: Temporal, Heart Rate: 119, Respiratory Rate: 16, BP: 142/90, Pulse Oximetry: 99, Weight: 53.200 Oxygen Flow Rate: 0 Pulse Oximetry Reflects: adequate oxygenation Physical Exam VITALS: Reviewed and as above. GENERAL: Alert, nontoxic appearing, no apparent distress. HEENT: RESPIRATORY: No increased work of breathing, no respiratory distress, speaking in full clear sentences CHEST: CV: BACK: GI: MUSCULOSKELETAL: SKIN: NEURO: PSYCH: General Appearance General: The patient is well developed, well nourished, nontoxic appearing and is in mild distress. Skin: [place], warm and dry with no rashes. HEENT: Head was normocephalic and atraumatic. Eyes - pupils equal, round, reactive to light and accommodation. Extraocular movements were intact. Conjunctivae were nonicteric. Ears - bilateral tympanic membranes were normal with tympanostomy tubes present. The mouth and oropharynx were clear with moist mucous membranes. There were no pharyngeal exudates or erythema. Neck: Supple and nontender. There was no jugular venous distention, lymphadenopathy, thyromegaly or masses. Chest: Clear to auscultation bilaterally without wheezes, rales or rhonchi. No accessory muscle use. No dullness to percussion. Heart: Rate regular and rhythmic. S1, S2. No murmurs. Palpation of the chest wall was normal. No rubs or thrills. Abdomen: Soft, nontender and nondistended. Positive bowel sounds. No guarding or rebound. No hepatosplenomegaly or palpable masses. Extremities: No cyanosis, clubbing or edema. The patient moves all extremities. Pulses were equal and symmetric. Neurologic: Cranial nerves II-XII were intact. Sensation was intact to light touch throughout. Motor strength was 5/5 in all four extremities. Deep tendon reflexes were intact in both upper and lower extremities. Psychologic: The patient was oriented to person, place and time. The patient demonstrated appropriate judgement and insight. Progress Results/Orders Reviewed/noted all lab results: Yes Results/Orders Orders - JEOVANY WILDE MD Urinalysis, Cult If Indicated (09/22/25 18:38) Culture Blood (09/22/25 18:38) Hcg, Ur Ql (09/22/25 18:38) Drug Screen, Urine (09/22/25 18:40) Saline Lock (09/22/25 18:40) Completed Orders - JEOVANY WILDE MD Cbc/Diff (09/22/25 18:38) MG (09/22/25 18:38) Procalcitonin (09/22/25 18:38) BMP (09/22/25 18:38) Lacticsepsis (09/22/25 18:38) Lipase (09/22/25 18:40) Ethanol (09/22/25 18:40) Prochlorperazine Inj (Compazine Inj) (09/22/25 18:40) Ketorolac Trometh 30mg/Ml Vial (Toradol (09/22/25 18:40) Morphine 2mg/Ml Inj. (Morphine Inj.) (09/22/25 18:40) Normal Saline 1000ml (0.9% Sodium Chlori (09/22/25 18:40) Azithromycin/Ns 500mg/250ml (Zithromax/N (09/22/25 18:40) Sumatriptan Succ. Inj. (Imitrex 6mg Inj. (09/22/25 20:15) Medications Received in ER Medications (Trade) Dose Ordered Sig/David Route PRN Reason Start Time Stop Time Status Last Admin Dose Admin (Compazine inj) 10 mg ONCE ONCE IV 09/22/25 18:40 09/22/25 18:48 DC 09/22/25 19:34 10 MG (Toradol inj. 30mg/ml) 30 mg ONCE ONCE IV 09/22/25 18:40 09/22/25 18:48 DC 09/22/25 19:34 30 MG (0.9% sodium chloride (NS) 1000ml IV soln) 1,000 ml ONCE ONCE IVB 09/22/25 18:40 09/22/25 18:48 DC 09/22/25 19:41 1,000 ML Azithromycin 250 ml @ 250 mls/hr ONCE ONCE IV 09/22/25 18:40 09/22/25 19:39 DC 09/22/25 19:41 250 MLS/HR (Imitrex 6mg inj.) 6 mg ONCE ONCE SQ 09/22/25 20:15 09/22/25 20:16 DC 09/22/25 20:24 6 MG Vital Signs 09/22/25 09/22/25 09/22/25 15:59 18:09 20:30 Temp 97.9 97.9 Pulse 119 97 Resp 16 19 14 B/P (MAP) 142/90 103/63 (76) 109/67 Pulse Ox 99 98 98 O2 Flow Rate 0 0 Laboratory Tests Test 09/22/25 19:02 White Blood Count 10.6 Red Blood Count 4.57 Hemoglobin 14.0 Hematocrit 41.1 Mean Corpuscular Volume 89.9 Mean Corpuscular Hemoglobin 30.5 Mean Corpuscular Hemoglobin Concent 34.0 Red Cell Distribution Width 12.3 Platelet Count 317 Mean Platelet Volume 8.6 Neutrophils (%) (Auto) 66.1 Lymphocytes (%) (Auto) 26.6 Monocytes (%) (Auto) 5.2 Eosinophils (%) (Auto) 1.3 Basophils (%) (Auto) 0.8 Neutrophils # (Auto) 7.0 Lymphocytes # (Auto) 2.8 Monocytes # (Auto) 0.6 Eosinophils # (Auto) 0.1 Basophils # (Auto) 0.1 CBC Comment Sodium Level 143 Potassium Level 3.8 Chloride Level 107 Carbon Dioxide Level 23.1 L Anion Gap 13 Blood Urea Nitrogen 13 Creatinine 0.67 Estimated GFR/1.73 m2 > 90 BUN/Creatinine Ratio 19.4 Glucose Level 79 Lactic Acid Level 1.8 Calcium Level 9.0 Magnesium Level 2.3 Albumin 4.0 Lipase 27 Procalcitonin < 0.05 Chemistry Comments Ethyl Alcohol Level < 10 Re-Evaluation Re-Evaluation : Re-Evaluation: Improved Progress Patient was seen and examined. Patient is given reassurance. The patient was getting anxious having anxiety tack wanted to leave. She received her fluids antibiotics for her ears, she was concerned about fluid buildup in her mastoids and brain injury. The patient has had some improvement but not complete resolution of her symptoms mostly having an anxiety attack at this time but because she does not have transportation does not want any sedatives. Patient was requesting to be discharged. Her laboratory work was all reassuring. Patie nt had no leukocytosis no electrolyte abnormalities. Patient was then discharged home with a prescription of Zithromax which she received the 1st dose in the ER as well as Zofran. Medical Decision Making Additional information obtaine: old records Findings MSE performed in triage and patient returned to ED lobby by nursing staff to await available ED room Differential Dx:Considerations: Include: MIRANDA-Cluster, MIRANDA-Migraine, MIRANDA-Hypert ensive, MIRANDA-Muscular contraction, MIRANDA-Post lumbar puncture, Carbon monoxide toxicity, Close head injuyr, CVA, Fever induced, Hemorrhage-Epidural, Hemorrhage-Intracerebral, Hemorrhage-Subarachnoid, Hemorrhage-Subdural, Mass lesion, Meningitis, Post-traumtic, Pseudotumor cerebri, Sinusitis, Temporal arteritis, Trigeminal neuralgia, Other Additional Comment Patient did not have any meningeal signs. For years appeared a bit inflamed and was given antibiotics. Patient is a bit anxious. Unlikely to have complication and mastoiditis. Patient was concerned about fluid buildup no CT scan was performed. Patient is very anxious that she is being missed diagnosed. She was given reassurance but was still a bit concerned. No signs of systemic infection white count is within normal limits. Departure Time of Disposition: 20:19 Disposition: HOME / SELF CARE / HOMELESS Impression: Primary Impression: Migraine headache Qualified Codes: G43.909 - Migraine, unspecified, not intractable, without status migrainosus Additional Impression: Anxiety Condition: Stable Discharge Instructions: Managing Anxiety, Adult, Migraine Headache Additional Instructions: Please follow up with your primary care physician. Return to the ER for any fevers, worsening pain, congestion. Take antibiotics as directed. Referrals: NO PRIMARY CARE PROVIDER (PCP) Prescriptions ONDANSETRON ODT 4mg tablet (ONDANSETRON ODT) 4 Mg Tab.rapdis 1 TAB PO Q6H PRN PRN for nausea/vomiting for 7 Days, #20 TAB 0 Refills Prov: JEOVANY WILDE MD 09/22/25 Azithromycin (Zithromax) 250 Mg Tablet 1 TAB PO DAILY, #4 TAB Prov: JEOVANY WILDE MD 09/22/25 Education Educated: Patient Educated regarding: diagnosis, need for follow up Signature Scribe Signature: Scribed for Jeovany Wilde MD by Jose Crocker . 09/22/25 20:35 Attestation: The note accurately reflects work and decisions made by me.Jeovany Wilde MD 20:52 MONAE CANNON Sep 22, 2025 16:14 JOSE WILDE Sep 22, 2025 18:22 JEOVANY WILDE MD Sep 22, 2025 20:49
[2025-09-22 18:09] VITALS: PULSE 97
[2025-09-22 19:12] LABS: MEAN PLATELET VOLUME 8.6 FL (7.4-10.4); RED CELL DISTRIBUTION WIDTH 12.3 % (11.5-14.5)
[2025-09-22 19:34] LABS: CREATININE 0.67 MG/DL (0.40-0.90); ETHANOL < 10 MG/DL (<10); TOTAL CARBON DIOXIDE 23.1 MMOL/L (24-32); eCRCL 101 ML/MIN; eGFR > 90 ML/MIN
[2025-09-22] MEDS: ketorolac trometh 30MG/ML vial 30 MG/ML VIAL IV ONE (19:34)
[2025-09-22] MEDS: azithromycin/NS 500mg/250ml 250 ML IV ONE (19:41)
[2025-09-22] MEDS: normal saline 1000ML IV soln IVB ONE (19:41)
[2025-09-22] MEDS ORDERED: AZIT-164 PO (20:20)
[2025-09-22] MEDS ORDERED: ONDA-243 PO (20:20)
[2025-09-22] MEDS: SUMAtriptan succ. 6 MG/0.5ml vial SQ ONE (20:24)
[2025-09-22 20:30] VITALS: BP 109/67; RESP 14; TEMP 97.9; O2SAT 98
== END 2025-09-22 20:36 | disposition home or self-care (01) ==
LOC: ER 15:53
DX: G43.909 Migraine, unspecified, not intractable, without status migrainosus (principal); F41.9 Anxiety disorder, unspecified; F12.90 Cannabis use, unspecified, uncomplicated; Z98.51 Tubal ligation status; Z79.899 Other long term (current) drug therapy; Z72.89 Other problems related to lifestyle; Z56.0 Unemployment, unspecified
CPT/HCPCS: 36415; 80048; 80320; 83605; 83690; 83735; 84145; 85025; 87040; 96365; 96372; 96375; 99284; J0456; J0780; J1885; J3030; J7030